=== PATIENT | male | born 1985 | race Caucasian/White ===

== ENCOUNTER 2018-01-17 03:27 | Emergency (ER) | payer OTHER ==
[~2018-01-17] VITALS: Ht 177.8 cm; Wt 78.2 kg
[2018-01-17 03:39] VITALS: BP 111/82
[2018-01-17] MEDS ORDERED: morphine 4 MG/ML inj SYRINge IM ONE (03:55)
[2018-01-18] MEDS ORDERED: ORPH100T2 PO (15:04)
== END 2018-01-17 04:40 | disposition home or self-care (01) ==
LOC: ER 03:28
DX: M54.5 Low back pain (principal); M25.551 Pain in right hip; G89.29 Other chronic pain; Z98.890 Other specified postprocedural states
CPT/HCPCS: 96372; 99283; J2270

== ENCOUNTER 2018-01-18 12:26 | Emergency (ER) | payer OTHER ==
[~2018-01-18] VITALS: Ht 177.8 cm; Wt 172.0 kg
[2018-01-18] MEDS ORDERED: orphenadrine citrate 60mg/2ml inj. IM ONE (12:50)
[2018-01-18] MEDS ORDERED: ketorolac trometh inj. 60 MG/2 ML VIAL IM ONE ×2 (12:50→14:18)
[2018-01-18] MEDS ORDERED: morphine 4 MG/ML inj SYRINge IM ONE (12:50)
[2018-01-18] MEDS ORDERED: orphenadrine citrate 60mg/2ml inj. ONE (14:18)
[2018-01-18] MEDS ORDERED: morphine 4 MG/ML inj SYRINge ONE ×2 (14:18→15:18)
[2018-01-18 14:28] VITALS: BP 139/85
[2018-01-18] MEDS ORDERED: ORPH100T2 PO (15:04)
[2018-01-18] MEDS ORDERED: morphine 4 MG/ML inj SYRINge IV ONE (15:05)
== END 2018-01-18 15:46 | disposition home or self-care (01) ==
LOC: ER 12:27
DX: G89.29 Other chronic pain (principal); M25.551 Pain in right hip; M79.604 Pain in right leg; M54.2 Cervicalgia; Z79.899 Other long term (current) drug therapy
CPT/HCPCS: 96372; 96374; 99284; J1885; J2270; J2360

== ENCOUNTER 2018-01-29 03:42 | Emergency (ER) | payer OTHER ==
[~2018-01-29] VITALS: Ht 177.8 cm; Wt 77.3 kg
[~2018-01-29 03:42] MED LIST: ORPH100T2 PO
[2018-01-29] MEDS ORDERED: diazepam 5mg tablet PO ONE (04:05)
[2018-01-29] MEDS ORDERED: ketorolac trometh. 30mg/ml inj. IM ONE (04:05)
[2018-01-29 04:35] VITALS: BP 134/70
== END 2018-01-29 04:42 | disposition home or self-care (01) ==
LOC: ER 03:42
DX: M54.41 Lumbago with sciatica, right side (principal); G89.29 Other chronic pain; Z79.899 Other long term (current) drug therapy
CPT/HCPCS: 96372; 99284; J1885

== ENCOUNTER 2018-08-27 10:07 | Emergency (ER) | payer OTHER ==
[~2018-08-27] VITALS: Ht 172.7 cm; Wt 93.2 kg
[2018-08-27] MEDS ORDERED: ondansetron/PF 4mg/2ml inj IV ONE (10:20)
[2018-08-27] MEDS ORDERED: normal saline 1000ml 1,000 ML IV ONE (10:20)
[2018-08-27] MEDS ORDERED: LORazepam 2 mg/ml vial IV ONE (10:20)
[2018-08-27] MEDS: capsaicin 0.025% 60gm cream TP SCH ×2 (11:03→11:07)
[2018-08-27] MEDS ORDERED: capsaicin 0.025% 60gm cream TP ONE (11:05)
[2018-08-27] MEDS ORDERED: capsaicin 0.025% 60gm cream TP SCH (11:05)
[2018-08-27] MEDS ORDERED: ONDA4TAB6 PO (11:59)
[2018-08-27 12:15] VITALS: BP 106/73
== END 2018-08-27 12:17 | disposition home or self-care (01) ==
LOC: ER 10:07
DX: F41.9 Anxiety disorder, unspecified (principal); G89.29 Other chronic pain; Z98.890 Other specified postprocedural states; Z79.899 Other long term (current) drug therapy
CPT/HCPCS: 82948; 93005; 96374; 96375; 99283; J2060; J2405; J7030

== ENCOUNTER 2018-09-01 02:02 | Emergency (ER) | payer OTHER ==
[~2018-09-01] VITALS: Ht 177.8 cm; Wt 66.2 kg
[~2018-09-01 02:02] MED LIST changes: +ONDA4TAB6 PO
[2018-09-01] MEDS ORDERED: morphine 4 MG/ML inj SYRINge IV ONE (04:30)
[2018-09-01] MEDS ORDERED: normal saline 1000ML IV soln IVB ONE (04:30)
[2018-09-01] MEDS ORDERED: ketorolac trometh. 30mg/ml inj. IV ONE (04:30)
[2018-09-01] MEDS ORDERED: LORazepam 2 mg/ml vial IV ONE (04:30)
[2018-09-01] MEDS ORDERED: PHE12.5T PO (04:32)
[2018-09-01] MEDS ORDERED: DULO20CA50 PO (04:32)
[2018-09-01 05:11] LABS: BASOPHILS % (AUTO) 0.4 % (0-1); EOSINOPHILS # (AUTO) 0.2 X10'3 (0-0.9); EOSINOPHILS % (AUTO) 2.6 % (0-6); HEMATOCRIT 44.8 % (42.0-52.0); LYMPHOCYTES # (AUTO) 2.5 X10'3 (1.1-4.8); LYMPHOCYTES % (AUTO) 30.6 % (21-51); MEAN CORPUSCULAR HEMOGLOBIN 28.6 PG (27.0-31.0); MEAN CORPUSCULAR HGB CONC 33.5 % (33.0-36.5); MEAN CORPUSCULAR VOLUME 85.3 FL (78-98); MEAN PLATELET VOLUME 8.6 FL (7.4-10.4); MONOCYTES # (AUTO) 0.6 X10'3 (0-0.9); MONOCYTES % (AUTO) 7.8 % (2-12); NEUTROPHILS # (AUTO) 4.8 X10'3 (1.8-7.7); NEUTROPHILS % (AUTO) 58.6 % (42-75); PLATELET COUNT 282 X10'3 (140-440); RED BLOOD COUNT 5.25 X10'6 (4.70-6.10); RED CELL DISTRIBUTION WIDTH 13.7 % (11.5-14.5); WHITE BLOOD COUNT 8.1 X10'3 (4.5-11.0)
[2018-09-01 05:27] LABS: ALANINE AMINOTRANSFERASE 50 U/L (12-78); ALBUMIN 4.1 G/DL (3.4-5.0); ALBUMIN/GLOBULIN RATIO 1.2 (1.1-1.5); ALKALINE PHOSPHATASE 85 IU/L (46-116); ANION GAP 10 (8-16); ASPARTATE AMINO TRANSFERASE 31 U/L (10-37); BILIRUBIN,TOTAL 0.3 MG/DL (0.1-1.0); BLOOD UREA NITROGEN 14 MG/DL (7-18); BUN/CREATININE RATIO 18.2 (5.4-32.0); CALCIUM 9.1 MG/DL (8.5-10.1); CHLORIDE 105 MMOL/L (99-107); CREATININE 0.77 MG/DL (0.60-1.10); GLUCOSE 91 MG/DL (70-104); POTASSIUM 4.1 MMOL/L (3.5-5.1); SODIUM 142 MMOL/L (135-145); TOTAL CARBON DIOXIDE 26.8 MMOL/L (24-32); TOTAL PROTEIN 7.4 G/DL (6.4-8.2); eGFR > 90 ML/MIN
[2018-09-01 06:15] VITALS: BP 128/69
[2018-09-01] MEDS ORDERED: LORA-269 PO (06:21)
[2018-09-01] MEDS ORDERED: duloxetine 20mg capsule.DR PO SCH (08:00)
== END 2018-09-01 06:29 | disposition home or self-care (01) ==
LOC: ER 02:03
DX: F19.939 Other psychoactive substance use, unspecified with withdrawal, unspecified (principal); R11.2 Nausea with vomiting, unspecified; R25.1 Tremor, unspecified; G89.29 Other chronic pain; M54.2 Cervicalgia; M54.9 Dorsalgia, unspecified; Z79.899 Other long term (current) drug therapy
CPT/HCPCS: 36415; 80053; 85025; 93005; 96374; 96375; 99284; J1885; J2060; J2270; J7030

== ENCOUNTER 2018-09-19 23:00 | Emergency (ER) | payer OTHER ==
[~2018-09-19] VITALS: Ht 177.8 cm; Wt 76.8 kg
[~2018-09-19 23:00] MED LIST changes: +DULO20CA50 PO; +LORA-269 PO; +PHE12.5T PO
--- NOTE | 2018-09-19 23:07 | NUR ---
PATIENT REFUSING TO ENTER TRIAGE WHEN ASKED IF THEY COULD WALK PATIENT STATES " I AM NOT GETTING UP RIGHT NOW."
[2018-09-20] MEDS ORDERED: diphenhydrAMINE 50 mg/ml inj IV ONE (00:45)
[2018-09-20] MEDS ORDERED: proCHLORperazine 10 MG/2 ml inj IV ONE (00:45)
[2018-09-20] MEDS ORDERED: normal saline 1000ML IV soln IVB ONE ×2 (00:45→02:00)
[2018-09-20 01:40] LABS: ALANINE AMINOTRANSFERASE 54 U/L (12-78); ALBUMIN/GLOBULIN RATIO 1.3 (1.1-1.5); ALKALINE PHOSPHATASE 72 IU/L (46-116); ANION GAP 11 (8-16); ASPARTATE AMINO TRANSFERASE 36 U/L (10-37); BILIRUBIN,TOTAL 0.3 MG/DL (0.1-1.0); BLOOD UREA NITROGEN 15 MG/DL (7-18); BUN/CREATININE RATIO 18.3 (5.4-32.0); CALCIUM 9.2 MG/DL (8.5-10.1); CHLORIDE 105 MMOL/L (99-107); CREATININE 0.82 MG/DL (0.60-1.10); GLUCOSE 86 MG/DL (70-104); POTASSIUM 3.6 MMOL/L (3.5-5.1); SODIUM 144 MMOL/L (135-145); TOTAL CARBON DIOXIDE 27.9 MMOL/L (24-32); TOTAL PROTEIN 7.1 G/DL (6.4-8.2); eGFR > 90 ML/MIN
[2018-09-20 01:47] LABS: BASOPHILS % (AUTO) 0.5 % (0-1); EOSINOPHILS # (AUTO) 0.1 X10'3 (0-0.9); EOSINOPHILS % (AUTO) 1.2 % (0-6); HEMATOCRIT 45.1 % (42.0-52.0); HEMOGLOBIN 14.4 g/dl (14.0-17.9); LYMPHOCYTES # (AUTO) 1.5 X10'3 (1.1-4.8); LYMPHOCYTES % (AUTO) 18.7 % (21-51); MEAN CORPUSCULAR HEMOGLOBIN 28.1 PG (27.0-31.0); MEAN CORPUSCULAR VOLUME 87.8 FL (78-98); MEAN PLATELET VOLUME 9.6 FL (7.4-10.4); MONOCYTES # (AUTO) 0.5 X10'3 (0-0.9); MONOCYTES % (AUTO) 5.9 % (2-12); NEUTROPHILS # (AUTO) 6.1 X10'3 (1.8-7.7); NEUTROPHILS % (AUTO) 73.7 % (42-75); PLATELET COUNT 242 X10'3 (140-440); RED BLOOD COUNT 5.13 X10'6 (4.70-6.10); RED CELL DISTRIBUTION WIDTH 13.2 % (11.5-14.5); WHITE BLOOD COUNT 8.2 X10'3 (4.5-11.0)
[2018-09-20] MEDS ORDERED: MECL12.584 PO (01:48)
[2018-09-20] MEDS ORDERED: haloperidol lactate 5mg/ml inj IM ONE (02:00)
[2018-09-20] MEDS ORDERED: PHE12.5T PO (02:02)
[2018-09-20 02:58] VITALS: BP 100/67
== END 2018-09-20 03:02 | disposition home or self-care (01) ==
LOC: ER 23:01
DX: R11.2 Nausea with vomiting, unspecified (principal); R42 Dizziness and giddiness; G44.009 Cluster headache syndrome, unspecified, not intractable; G47.00 Insomnia, unspecified; H55.00 Unspecified nystagmus; G89.29 Other chronic pain; Z88.8 Allergy status to other drugs, medicaments and biological substances; Z79.899 Other long term (current) drug therapy
CPT/HCPCS: 36415; 70450; 80053; 83735; 85025; 96361; 96374; 96375; 99284; J0780; J1200; J7030

== ENCOUNTER 2018-11-30 18:34 | Emergency (ER) | payer BC, OTHER ==
[~2018-11-30] VITALS: Ht 175.3 cm; Wt 77.8 kg
[~2018-11-30 18:34] MED LIST changes: +MECL12.584 PO
[2018-11-30] MEDS ORDERED: ibuprofen tablet 400 MG TABLET PO ONE (19:40)
[2018-11-30 20:53] VITALS: BP 110/64
[2018-11-30] MEDS ORDERED: TAM75C PO (21:25)
== END 2018-11-30 21:35 | disposition home or self-care (01) ==
LOC: ER 18:35
DX: J11.1 Influenza due to unidentified influenza virus with other respiratory manifestations (principal); G89.29 Other chronic pain; R11.0 Nausea; Z88.8 Allergy status to other drugs, medicaments and biological substances; Z79.899 Other long term (current) drug therapy
CPT/HCPCS: 87502; 87503; 99283

== ENCOUNTER 2020-01-02 21:50 | Emergency (ER) | payer BC, OTHER ==
[~2020-01-02] VITALS: Ht 175.3 cm; Wt 81.8 kg
[~2020-01-02 21:50] MED LIST changes: +MECL-184 PO; -MECL12.584 PO; -PHE12.5T PO; +PROM12.512 PO
[2020-01-02 21:59] VITALS: BP 135/100
== END 2020-01-02 22:42 | disposition home or self-care (01) ==
LOC: ER 21:52
DX: R05 Cough (principal); R51 Headache; R07.89 Other chest pain; G89.29 Other chronic pain; F12.90 Cannabis use, unspecified, uncomplicated; Z98.890 Other specified postprocedural states; Z88.8 Allergy status to other drugs, medicaments and biological substances; Z79.899 Other long term (current) drug therapy
CPT/HCPCS: 71045; 99283

== ENCOUNTER 2020-02-06 13:24 | Emergency (ER) | payer BC ==
[~2020-02-06] VITALS: Ht 172.7 cm; Wt 83.0 kg
[2020-02-06 13:30] VITALS: BP 132/82
== END 2020-02-06 14:15 | disposition home or self-care (01) ==
LOC: ER 13:25
DX: S90.851A Superficial foreign body, right foot, initial encounter (principal); L84 Corns and callosities; G89.29 Other chronic pain; F12.90 Cannabis use, unspecified, uncomplicated; Z98.890 Other specified postprocedural states; Z88.8 Allergy status to other drugs, medicaments and biological substances; Z79.899 Other long term (current) drug therapy; W22.8XXA Striking against or struck by other objects, initial encounter; Y93.89 Activity, other specified; Y92.89 Other specified places as the place of occurrence of the external cause; Y99.8 Other external cause status
CPT/HCPCS: 99282

== ENCOUNTER 2021-02-23 21:00 | Emergency (ER) | payer BC, OTHER ==
[~2021-02-23] VITALS: Ht 175.3 cm; Wt 88.0 kg
[~2021-02-23 21:00] MED LIST changes: -MECL-184 PO; +MECL-231 PO
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
--- NOTE | 2021-02-23 21:22 | NUR ---
PER HAND WASHER JUSTIN PATIENT MOVED TO [facility] IN[facility] MAIN ER IN THE WHEELCHAIR. PER HAND WASHER JUSTIN: NO RN TO SBAR TO
--- NOTE | 2021-02-23 22:10 | NUR ---
REPORT RECEIVED, ASSUMED CARE. PT LAYING FACE DOWN ON BED, C/O HIP PAIN.
[2021-02-23] MEDS ORDERED: ketorolac tromethamine 15mg/ml inj. IM ONE (23:05)
[2021-02-24] MEDS ORDERED: diazepam inj 5 MG/ML inj. IV ONE (00:20)
[2021-02-24 00:31] VITALS: BP 134/82
[2021-02-24] MEDS ORDERED: DIAZ5TAB PO (00:59)
== END 2021-02-24 01:05 | disposition home or self-care (01) ==
LOC: ER 21:01
DX: G89.29 Other chronic pain (principal); M54.5 Low back pain; F12.10 Cannabis abuse, uncomplicated; Z79.899 Other long term (current) drug therapy; Z88.8 Allergy status to other drugs, medicaments and biological substances
CPT/HCPCS: 96372; 96374; 99284; J1885; J3360

== ENCOUNTER 2022-09-11 20:50 | Emergency (ER) | payer MEDICAID, OTHER ==
[~2022-09-11] VITALS: Ht 175.3 cm; Wt 8.6 kg
[~2022-09-11 20:50] MED LIST changes: +DIAZ5TAB PO
[2022-09-11] MEDS ORDERED: acetaminophen 325mg tablet PO ONE (21:05)
[2022-09-11 21:27] LABS: BASOPHILS % (AUTO) 0.6 % (0-1); EOSINOPHILS # (AUTO) 0.2 X10'3 (0-0.9); EOSINOPHILS % (AUTO) 2.5 % (0-6); HEMATOCRIT 42.8 % (42.0-52.0); HEMOGLOBIN 14.8 g/dl (14.0-17.9); LYMPHOCYTES # (AUTO) 2.7 X10'3 (1.1-4.8); LYMPHOCYTES % (AUTO) 35.6 % (21-51); MEAN CORPUSCULAR HGB CONC 34.5 g/dL (33.0-36.5); MEAN CORPUSCULAR VOLUME 84.3 FL (78-98); MEAN PLATELET VOLUME 8.3 FL (7.4-10.4); MONOCYTES # (AUTO) 0.5 X10'3 (0-0.9); MONOCYTES % (AUTO) 7.2 % (2-12); NEUTROPHILS # (AUTO) 4.1 X10'3 (1.8-7.7); NEUTROPHILS % (AUTO) 54.1 % (42-75); PLATELET COUNT 233 X10'3 (140-440); RED BLOOD COUNT 5.08 X10'6 (4.70-6.10); RED CELL DISTRIBUTION WIDTH 13.1 % (11.5-14.5); WHITE BLOOD COUNT 7.6 X10'3 (4.5-11.0)
[2022-09-11 21:45] LABS: ALANINE AMINOTRANSFERASE 27 U/L (12-78); ALBUMIN/GLOBULIN RATIO 1.1 (1.1-1.5); ALKALINE PHOSPHATASE 96 IU/L (46-116); ANION GAP 9 (8-16); ASPARTATE AMINO TRANSFERASE 29 U/L (10-37); BILIRUBIN,TOTAL 0.2 MG/DL (0.1-1.0); BLOOD UREA NITROGEN 21 MG/DL (7-18); BUN/CREATININE RATIO 21.2 (5.4-32.0); CALCIUM 9.2 MG/DL (8.5-10.1); CHLORIDE 104 MMOL/L (99-107); CREATININE 0.99 MG/DL (0.60-1.10); GLUCOSE 94 MG/DL (70-104); POTASSIUM 3.6 MMOL/L (3.5-5.1); SODIUM 139 MMOL/L (135-145); TOTAL CARBON DIOXIDE 25.9 MMOL/L (24-32); TOTAL PROTEIN 7.7 G/DL (6.4-8.2); eGFR 86 ML/MIN
[2022-09-11 22:48] VITALS: BP 123/77
== END 2022-09-11 22:49 | disposition home or self-care (01) ==
LOC: ER 20:51
DX: R51.9 Headache, unspecified (principal); M79.602 Pain in left arm; R20.0 Anesthesia of skin; H53.9 Unspecified visual disturbance; G89.29 Other chronic pain; M54.9 Dorsalgia, unspecified; F12.10 Cannabis abuse, uncomplicated; Z88.8 Allergy status to other drugs, medicaments and biological substances; Z98.890 Other specified postprocedural states
CPT/HCPCS: 36415; 70450; 80053; 82948; 84484; 85025; 93005; 99285

== ENCOUNTER 2023-06-17 18:29 | Emergency (ER) | payer BC, MEDICAID, OTHER ==
[~2023-06-17] VITALS: Ht 177.8 cm; Wt 81.2 kg
[~2023-06-17 18:29] MED LIST changes: -ORPH100T2 PO; +ORPH100T4 PO
--- NOTE | 2023-06-17 18:55 | NUR ---
C-COLLAR PLACED BY [facility].
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
--- NOTE | 2023-06-17 19:15 | NUR ---
[facility] SENDING MRI REPORT FOR PATIENT FROM TODAY.
--- NOTE | 2023-06-17 19:30 | NUR ---
I agree with [facility] assessment.
[2023-06-17] MEDS ORDERED: triamcinolone acetonide 40mg/ml inj IM ONE (20:10)
[2023-06-17] MEDS ORDERED: morphine 10mg/ml inj. IM ONE (20:10)
[2023-06-17] MEDS ORDERED: orphenadrine citrate 60mg/2ml inj. IM ONE (20:10)
[2023-06-17] MEDS ORDERED: ondansetron 4mg rapidly disintigrating tab PO ONE (20:35)
--- NOTE | 2023-06-17 20:43 | NUR ---
PT REMOVED C-COLLAR HIMSELF WHILE THROWING UP. C COLLAR PLACED BACK ON PATIENT.
--- NOTE | 2023-06-17 21:38 | NUR ---
RECEIVED CALL FROM TRANSFER CENTER FROM [place], WAS INFORMED TO LET THEM KNOW WHEN PATIENTS DEPARTS. CALLED REPORT TO DAVID COLON AT [facility]. PATIENT ENROUTE TO [facility] VIA PRIVATE VEHICLE WITH TRANSFER PACKET.
[2023-06-17 21:39] VITALS: BP 121/82; PULSE 61; RESP 17; TEMP 98.4; O2SAT 95
== END 2023-06-17 21:42 | disposition short-term general hospital (02) ==
LOC: ER 18:30
DX: M50.923 Unspecified cervical disc disorder at C6-C7 level (principal); M54.12 Radiculopathy, cervical region; R11.0 Nausea; F12.90 Cannabis use, unspecified, uncomplicated; Z88.8 Allergy status to other drugs, medicaments and biological substances; Z79.899 Other long term (current) drug therapy
CPT/HCPCS: 96372; 99291; J2274; J2360; J3301

== ENCOUNTER 2024-04-21 17:51 | Emergency (ER) | payer BC, MEDICAID ==
[~2024-04-21] VITALS: Ht 177.8 cm; Wt 88.8 kg
[2024-04-21] MEDS ORDERED: gabapentin 100mg capsule PO ONE (19:15)
[2024-04-21] MEDS: meclizine 12.5mg tablet PO ONE (19:40)
[2024-04-21] MEDS: pregabalin 75mg capsule PO ONE (19:40)
[2024-04-21 19:49] VITALS: BP 121/76; PULSE 65; RESP 16; TEMP 98.1; O2SAT 95
[2024-04-22] MEDS ORDERED: PREG50CA PO ×2 (10:18→14:20)
== END 2024-04-21 19:53 | disposition home or self-care (01) ==
LOC: ER 17:51
DX: M50.123 Cervical disc disorder at C6-C7 level with radiculopathy (principal); G89.29 Other chronic pain; M54.9 Dorsalgia, unspecified; F12.90 Cannabis use, unspecified, uncomplicated; Z88.8 Allergy status to other drugs, medicaments and biological substances; Z79.899 Other long term (current) drug therapy
CPT/HCPCS: 99283; C1751; J8597

== ENCOUNTER 2024-04-22 12:50 | Emergency (ER) | payer BC ==
[~2024-04-22] VITALS: Ht 177.8 cm; Wt 87.5 kg
[~2024-04-22 12:50] MED LIST changes: +PREG50CA PO
[2024-04-22] MEDS: pregabalin 25mg capsule PO SCH (13:17)
[2024-04-22] MEDS ORDERED: PREG50CA PO (14:20)
[2024-04-22] MEDS: pregabalin 25mg capsule PO ONE (14:33)
[2024-04-22 14:37] VITALS: BP 122/68; PULSE 82; RESP 14; TEMP 98.4; O2SAT 98
== END 2024-04-22 14:42 | disposition home or self-care (01) ==
LOC: ER 12:51
DX: Z76.0 Encounter for issue of repeat prescription (principal); F12.90 Cannabis use, unspecified, uncomplicated; Z88.8 Allergy status to other drugs, medicaments and biological substances; Z79.899 Other long term (current) drug therapy
CPT/HCPCS: 99283